=== PATIENT | male | born 1975 | race African-American/Black ===

== ENCOUNTER 2016-09-26 15:41 | Outpatient (CLI) | payer BC ==
[2016-09-26 16:15] LABS: #Basophils 0.1 thou/uL (0.0-0.2); #Eosinphils 0.1 thou/uL (0.0-0.7); #Lymphocytes 1.3 thou/uL (1.20-3.40); #Monocytes 0.4 thou/uL (0.11-0.59); #Neutrophils 3.7 thou/uL (1.40-6.50); %Basophils 1.8 % (0.0-1.0); %Eosinophils 2.4 % (0.0-10.0); %Lymphocytes 23.9 % (21.0-51.0); %Monocytes 6.6 % (0.0-10.0); %Neutrophils 65.3 % (42.0-75.0); Hemoglobin 14.5 g/dL (14.0-18.0); Mean Corpuscular HGB CONC 32.4 g/dL (32.0-36.0); Mean Corpuscular Hemoglobin 26.6 pg (27.0-31.0); Mean Corpuscular Volume 82.1 fl (80.0-94.0); Mean Platelet Volume 7.9 fL (7.4-10.4); Platelet Count 238 thou/uL (130-400); RBC Distribution Width 13.3 % (11.5-14.5); Red Blood Cell (RBC) Count 5.44 mill/uL (4.70-6.10); White Blood Cell (WBC) Count 5.6 thou/uL (4.8-10.8)
[2016-09-26 16:31] LABS: ALT (SGPT) 19 U/L (8-55); AST (SGOT) 19 U/L (5-34); Albumin 4.2 g/dL (3.5-5.0); Alkaline Phosphatase 53 U/L (40-150); Anion Gap 15 mmol/L (10-20); BUN (Urea Nitrogen) 16 mg/dL (8.9-20.6); Bilirubin, Total 0.6 mg/dL (0.2-1.2); Calc. Creatinine Clearance 0 mL/min (70-130); Calcium 9.5 mg/dL (7.8-10.44); Carbon Dioxide 25 mmol/L (22-29); Chloride 105 mmol/L (98-107); Estimated GFR-MDRD 74; Globulin 3.5 g/dL (2.4-3.5); Glucose 101 mg/dL (70-105); Potassium 4.2 mmol/L (3.5-5.1); Protein, Total 7.7 g/dL (6.0-8.3); Sodium 141 mmol/L (136-145)
== END 2016-09-26 15:42 | disposition home or self-care (01) ==
LOC: HPCALD 15:41
PROVIDERS: ATTEND Family Medicine
DX: I10 Essential (primary) hypertension (principal)
CPT/HCPCS: 36415; 80053; 84443; 85025

== ENCOUNTER 2017-07-17 06:43 | Emergency (ER) | payer BC, SELFPAY | END 2017-07-17 07:15 | disposition home or self-care (01) | LOC: BURERS 06:43 | DX: M25.562 Pain in left knee (principal); I10 Essential (primary) hypertension; F17.210 Nicotine dependence, cigarettes, uncomplicated; V89.2XXD Person injured in unspecified motor-vehicle accident, traffic, subsequent encounter | CPT/HCPCS: 99283 ==

== ENCOUNTER 2017-11-22 17:41 | Emergency (ER) | payer SELFPAY | END 2017-11-22 18:23 | disposition home or self-care (01) | LOC: BURERS 17:41 | DX: K62.89 Other specified diseases of anus and rectum (principal); F17.210 Nicotine dependence, cigarettes, uncomplicated; I10 Essential (primary) hypertension; Z79.899 Other long term (current) drug therapy | CPT/HCPCS: 99283 ==

== ENCOUNTER 2018-01-20 07:35 | Emergency (ER) | payer SELFPAY | END 2018-01-20 08:10 | disposition home or self-care (01) | LOC: BURERS 07:35 | DX: M25.571 Pain in right ankle and joints of right foot (principal); G89.29 Other chronic pain; K92.1 Melena; I10 Essential (primary) hypertension; F17.210 Nicotine dependence, cigarettes, uncomplicated; Z79.899 Other long term (current) drug therapy | CPT/HCPCS: 99283 ==

== ENCOUNTER 2018-01-21 15:41 | Emergency (ER) | payer SELFPAY | END 2018-01-21 16:09 | disposition home or self-care (01) | LOC: BURERS 15:41 | DX: R11.2 Nausea with vomiting, unspecified (principal); F17.210 Nicotine dependence, cigarettes, uncomplicated; Z79.899 Other long term (current) drug therapy; I10 Essential (primary) hypertension | CPT/HCPCS: 99283 ==

== ENCOUNTER 2019-05-20 20:33 | Emergency (ER) | payer BC, SELFPAY | END 2019-05-20 20:55 | disposition home or self-care (01) | LOC: BURERS 20:33 | DX: J06.9 Acute upper respiratory infection, unspecified (principal); I10 Essential (primary) hypertension; F17.210 Nicotine dependence, cigarettes, uncomplicated; Z79.899 Other long term (current) drug therapy | CPT/HCPCS: 99281 ==

== ENCOUNTER 2022-04-10 11:47 | Emergency (ER) | payer BC ==
[2022-04-10] MEDS ORDERED: Ibuprofen 200 MG TAB ONE (12:59)
== END 2022-04-10 13:03 | disposition home or self-care (01) ==
LOC: BURERS 11:47
DX: M17.12 Unilateral primary osteoarthritis, left knee (principal); I10 Essential (primary) hypertension; F17.210 Nicotine dependence, cigarettes, uncomplicated

== ENCOUNTER 2024-10-13 12:42 | Emergency (ER) | payer BC | END 2024-10-13 13:21 | disposition home or self-care (01) | LOC: BURERS 12:46 | DX: G56.02 Carpal tunnel syndrome, left upper limb (principal); I10 Essential (primary) hypertension; F17.210 Nicotine dependence, cigarettes, uncomplicated | CPT/HCPCS: 99283 ==